=== PATIENT | female | born 1980 | race American Indian/Alaskan Native ===

== ENCOUNTER 2016-11-01 21:14 | Emergency (ER) | payer OTHER ==
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
[2016-11-02] MEDS ORDERED: NORCO 5/325 PO ONE (01:56)
[2016-11-02 03:41] VITALS: BP 115/72
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
== END 2016-11-02 03:39 | disposition home or self-care (01) ==
LOC: ED 21:14
DX: S30.0XXA Contusion of lower back and pelvis, initial encounter (principal); S40.012A Contusion of left shoulder, initial encounter; E78.00 Pure hypercholesterolemia, unspecified; V43.52XA Car driver injured in collision with other type car in traffic accident, initial encounter; Y92.413 State road as the place of occurrence of the external cause; Y93.89 Activity, other specified; Y99.8 Other external cause status
CPT/HCPCS: 72100

== ENCOUNTER 2017-10-10 13:55 | Outpatient (CLI) | payer OTHER ==
--- NOTE | 2017-10-10 16:27 | Ultrasound Report ---
BILATERAL DIGITAL DIAGNOSTIC MAMMOGRAM with CAD and BILATERAL BREAST ULTRASOUND: 10/10/17 14:30:00 CLINICAL: Bilateral breast pain. COMPARISON:None. FINDINGS: The breasts are heterogeneously dense, which may obscure small masses.No mass, architectural distortion or suspicious calcifications. Ultrasound of the right breast (including all four quadrants and the retroareolar area) demonstrated normal fibroglandular and fatty structures. No mass, cyst or shadowing. Ultrasound of the left breast (including all four quadrants and the retroareolar area) demonstrated normal fibroglandular and fatty structures. No mass, cyst or shadowing. IMPRESSION: Negative bilateral mammogram and negative bilateral breast ultrasound. No explanation for bilateral breast pain. BI-RADS CATEGORY: 1 -- Negative RECOMMENDATION: Clinical followup and routine mammographic screening based on ACS guidelines. COMMENT: Patient follow-up letters are generated by our [employer] application.
== END 2017-10-10 13:56 | disposition home or self-care (01) ==
LOC: MAMMO 13:55
PROVIDERS: ATTEND Internal Medicine
DX: N64.4 Mastodynia (principal)
CPT/HCPCS: 77066

== ENCOUNTER 2018-10-17 11:07 | Emergency (ER) | payer MEDICARE, OTHER ==
--- NOTE | 2018-10-17 11:43 | XRay Report ---
RIGHT TOES, 3 views: History: Injury, pain, deformity. A mildly displaced fracture is identified through the proximal phalanx of the fourth toe. Alignment is near-anatomic. No calcified callus. The remaining right toes are intact. No joint pathology. IMPRESSION: Fracture, proximal phalanx, fourth toe.
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
[2018-10-17 12:13] VITALS: BP 120/84
== END 2018-10-17 12:10 | disposition home or self-care (01) ==
LOC: ED 11:07
DX: S92.521A Displaced fracture of middle phalanx of right lesser toe(s), initial encounter for closed fracture (principal); E78.00 Pure hypercholesterolemia, unspecified; W22.09XA Striking against other stationary object, initial encounter; Y93.89 Activity, other specified; Y92.89 Other specified places as the place of occurrence of the external cause; Y99.8 Other external cause status

== ENCOUNTER 2019-06-01 12:35 | Emergency (ER) | payer OTHER ==
[2019-06-01 13:02] VITALS: BP 125/71
--- NOTE | 2019-06-01 13:02 | Emergency Department Report ---
Blank Doc - Documentation Documentation: 38-year-old female that presents with URI symptoms. This initial assessment/diagnostic orders/clinical plan/treatment(s) is/are subject to change based on patient's health status, clinical progression and re- assessment by fellow clinical providers in the ED. Further treatment and workup at subsequent clinical providers discretion. Patient/guardians urged not to elope from the ED as their condition may be serious if not clinically assessed and managed. Initial orders include: 1- Patient sent to [facility] for further evaluation and treatment 2- xrays
--- NOTE | 2019-06-01 13:43 | XRay Report ---
CHEST 2 VIEWS INDICATION / CLINICAL INFORMATION: cough. COMPARISON: None available. FINDINGS: SUPPORT DEVICES: None. HEART / MEDIASTINUM: No significant abnormality. LUNGS / PLEURA: No significant pulmonary or pleural abnormality. No pneumothorax. ADDITIONAL FINDINGS: No significant additional findings. IMPRESSION: 1. No acute findings. Signer Name: Evangelista Smith MD Signed: 06/01/2019 1:39 PM Workstation Name: [id number]
--- NOTE | 2019-06-01 15:24 | Emergency Department Report ---
Minor Respiratory - HPI Chief Complaint: Upper Respiratory Infection Stated Complaint: CHEST PAIN/COUGH/DIZZINESS Time Seen by Provider: 06/01/19 13:01 Duration: 1 week Pain Location: Chest Severity: moderate Minor Respiratory: Yes Able to Tolerate Fluids, Yes Cough, Yes Sick Contacts, Yes Chest Pain, No Rhinorrhea, No Sore Throat, No Ear Pain, No Hemoptysis, No Shortness of Breath, No Fever Other History: Mrs. Moreno is a 38 yo female who presents with productive cough and nausea for one week. She has chest pain with cough. She lives with a smoker. Gradual onset of symptoms. Mild in severity. Intermittent in nature. Central discomfort without radiation. ED Review of Systems ROS: Stated complaint: CHEST PAIN/COUGH/DIZZINESS Other details as noted in HPI Constitutional: malaise. denies: fever Respiratory: cough. denies: shortness of breath, wheezing Cardiovascular: chest pain Gastrointestinal: nausea. denies: abdominal pain ED Past Medical Hx - Past Medical History Previous Medical History?: Yes Additional medical history: High cholesterol - Surgical History Past Surgical History?: No - Social History Smoking Status: Never Smoker Substance Use Type: None - Medications Home Medications: Home Medications Medication Instructions Recorded Confirmed Last Taken Type Vit Calc,Iron,Folic 1 each PO DAILY #100 tablet 10/06/15 Unknown Rx [ Vitamins] Promethazine [Phenergan TAB] 25 mg PO Q6HR PRN #14 tab 10/06/15 Unknown Rx EPINEPHrine [Epipen 2-Juan Ramon] 0.3 mg IM ONCE PRN #1 dose 04/03/16 Unknown Rx Famotidine [Pepcid] 20 mg PO BID #20 tablet 04/03/16 Unknown Rx Prednisone [predniSONE 10 mg 10 mg PO .TAPER #1 tab.ds.pk 04/03/16 Unknown Rx (6-Day Pack, 21 Tabs)] diphenhydrAMINE [Benadryl CAP] 25 mg PO Q6HR PRN #30 capsule 04/03/16 Unknown Rx Baclofen 20 mg PO BID #20 tablet 11/02/16 Unknown Rx Diclofenac Sodium 75 mg PO BID #20 tablet.dr 11/02/16 Unknown Rx HYDROcodone/APAP 5-325 [[place] 1 each PO Q6HR PRN #15 tablet 10/17/18 Unknown Rx 5/325] Ibuprofen [Motrin] 800 mg PO Q8HR PRN #20 tablet 10/17/18 Unknown Rx Doxycycline Hyclate [Doxycycline 100 mg PO Q12HR 7 Days #14 tab 06/01/19 Unknown Rx Hyclate TAB] predniSONE [Deltasone] 50 mg PO QDAY 4 Days #4 tab 06/01/19 Unknown Rx Minor Respiratory Exam - Exam General: Vital signs noted. No distress. Alert and acting appropriately. Well-appearing nontoxic frequent cough observed HEENT: Yes Moist Mucous Membranes, No Pharyngeal Erythema, No Pharyngeal Exudates, No Rhinorrhea, No Conjuctival Injection Neck: Yes Supple, No Adenopathy Lungs: Yes Good Air Exchange, No Wheezes, No [place], No Stridor, No Cough, No Labored Respirations, No Retractions, No Use of Accessory Muscles, No Other Abnormal Lung Sounds Heart: Yes Regular, No Murmur Abdomen: Yes Normal Bowel Sounds, No Tenderness, No Peritoneal Signs Skin: No Rash, No Edema Neurologic: Alert and oriented, no deficits. Musculoskeletal: Unremarkable. ED Course Vital Signs 06/01/19 12:40 Temperature 98.4 F Pulse Rate 73 Respiratory 16 Rate Blood Pressure 125/71 O2 Sat by Pulse 100 Oximetry ED Medical Decision Making - Radiology Data Radiology results: report reviewed Chest radiographs no acute findings according to radiology impression - Medical Decision Making Acute bronchitis due to severity of symptoms and history of tobacco abuse, antibiotic indicated. Prescription provided for doxycycline and prednisone Critical care attestation.: If time is entered above; I have spent that time in minutes in the direct care of this critically ill patient, excluding procedure time. ED Disposition Clinical Impression: Acute bronchitis Disposition: DC-01 TO HOME OR SELFCARE Is pt being admited?: No Does the pt Need Aspirin: No Condition: Stable Instructions: Acute Bronchitis (ED) Prescriptions: predniSONE [Deltasone] 50 mg PO QDAY 4 Days #4 tab Doxycycline Hyclate [Doxycycline Hyclate TAB] 100 mg PO Q12HR 7 Days #14 tab Forms: Accompanied Note, Work/School Release Form(ED)
== END 2019-06-01 15:48 | disposition home or self-care (01) ==
LOC: ED 12:35
DX: J20.9 Acute bronchitis, unspecified (principal); E78.00 Pure hypercholesterolemia, unspecified; Z79.899 Other long term (current) drug therapy
CPT/HCPCS: 71046; 99283